=== PATIENT | male | born 1995 | race Caucasian/White ===

== ENCOUNTER 2020-07-31 05:21 | Emergency (ER) | payer MEDICAID ==
[~2020-07-31] VITALS: Ht 188 cm; Wt 84.7 kg
--- NOTE | 2020-07-31 05:41 | NUR ---
CO OF HEAD INJURY FROM HITTING HEAD ON BATHROON DOOR. PT STATES FRIENDS NEAR BY STATED PT LSOT CONSCIOUSNESS FOR "10-30 SECONDS". DENIES PAIN. LACERATION ON MIDDLE FOREHEAD WITH SWELLING AND SMALL BLOODY DRAINAGE. PT A&OX4, NO VISITORS AT BEDSIDE, PT DROPPED OFF BY FRIEND
[2020-07-31] MEDS ORDERED: L.E.T SOLUTION TP ONE ×2 (05:49→06:00)
[2020-07-31 06:45] VITALS: BP 141/90
== END 2020-07-31 06:51 | disposition home or self-care (01) ==
LOC: ED 06:23
DX: S01.81XA Laceration without foreign body of other part of head, initial encounter (principal); W22.8XXA Striking against or struck by other objects, initial encounter; Y93.89 Activity, other specified; Y92.098 Other place in other non-institutional residence as the place of occurrence of the external cause; Y99.8 Other external cause status
CPT/HCPCS: 12052; 99284